=== PATIENT | female | born 1970 | race Caucasian/White ===

== ENCOUNTER 2019-06-14 | Emergency (ER) | payer OTHER ==
[2019-06-14] MEDS ORDERED: MEDDOSEPAK PO (15:01)
== END 2019-06-14 15:41 | disposition home or self-care (01) | DRG 918 ==
DX: T59.891A Toxic effect of other specified gases, fumes and vapors, accidental (unintentional), initial encounter (principal); J39.2 Other diseases of pharynx; Y92.239 Unspecified place in hospital as the place of occurrence of the external cause